=== PATIENT | female | born 1990 | race Caucasian/White ===

== ENCOUNTER 2019-04-15 23:18 | Emergency (ER) | payer OTHER | END 2019-04-16 01:59 | disposition home or self-care (01) | LOC: FTE 23:18 | DX: S89.91XA Unspecified injury of right lower leg, initial encounter (principal); X50.1XXA Overexertion from prolonged static or awkward postures, initial encounter; Y92.9 Unspecified place or not applicable | CPT/HCPCS: 29505; 73562; 99283-25 ==